=== PATIENT | female | born 1965 | race Caucasian/White ===

== ENCOUNTER → 2018-03-21 | Outpatient (REF) | payer OTHER ==
[2018-03-21 17:44] LABS: TOTAL PROTEIN,RANDOM URINE 17.6 MG/DL (0.0-12.0)
[2018-03-21 20:56] LABS: APPEARANCE, URINE HAZY (CLEAR); BACTERIA, URINE AUTO 1+ (NEGATIVE); BILIRUBIN, URINE AUTO NEGATIVE (NEGATIVE); BLOOD, URINE BLOOD NEGATIVE (NEGATIVE); COLOR, URINE YELLOW (YELLOW); GLUCOSE, URINE (UA) AUTO NEGATIVE (NEGATIVE); KETONE, URINE AUTO TRACE mg/dL (NEGATIVE); LEUKOCYTE ESTERASE, URINE AUTO NEGATIVE (NEGATIVE); MUCUS, URINE SMALL (NEGATIVE); NITRITE, URINE AUTO NEGATIVE (NEGATIVE); PROTEIN, URINE AUTO NEGATIVE (NEGATIVE); RBC, URINE AUTO 2 /HPF (0-3); SPECIFIC GRAVITY URINE AUTO 1.027 (1.002-1.035); SQUAMOUS EPITHELIAL CELL UR AU 3 /HPF (0-6); UROBILINOGEN, URINE AUTO 0.2 mg/dL (0.0-2.0); WBC, URINE AUTO 0 /HPF (0-3)
== END ==
LOC: M LAB REF 16:15
DX: M12.9 Arthropathy, unspecified (principal); R79.89 Other specified abnormal findings of blood chemistry

== ENCOUNTER → 2020-04-05 | Outpatient (CLI) | payer OTHER ==
[2020-04-05 11:39] LABS: BLOOD UREA NITROGEN 12 MG/DL (7-18); CALCIUM LEVEL 8.8 MG/DL (8.5-10.1); CARBON DIOXIDE LEVEL 29 MEQ/L (21-32); CHLORIDE LEVEL 104 MEQ/L (98-107); CREATININE FOR GFR 0.66 MG/DL (0.55-1.30); GLOMERULAR FILTRATION RATE > 60.0 (>51); GLUCOSE, FASTING 180 MG/DL (70-100); POTASSIUM SERUM 4.3 MEQ/L (3.5-5.1); SODIUM LEVEL 138 MEQ/L (136-145)
--- NOTE | 2020-04-06 06:21 | ECGEPIP ---
[facility] Test Date: 2020-04-05 Pat Name: CATHERINE CORCORAN Department: Room: - Gender: Female Vice President Financial: SIDNEY : 1965 Requested By: Lc Adair Order Number: [id number] Reading MD: Igor Smith Measurements Intervals [place] Rate: 75 P: 48 [place]: 165 QRS: -1 QRSD: 82 T: 73 QT: 367 QTc: 411 Interpretive Statements Normal sinus rhythm Minor nonspecific T wave abnormality Comparison tracing not on file Electronically Signed on 04-06-2020 6:21:11 EDT by Igor Smith
== END ==
LOC: M LAB 10:06
PROVIDERS: ATTEND Orthopaedic Surgery
DX: I10 Essential (primary) hypertension (principal); Z79.899 Other long term (current) drug therapy; R94.31 Abnormal electrocardiogram [ECG] [EKG]

== ENCOUNTER → 2020-04-08 | Outpatient (CLI) | payer OTHER | LOC: M LABSMTC 11:58 | PROVIDERS: ATTEND Orthopaedic Surgery | DX: Z01.812 Encounter for preprocedural laboratory examination (principal); Z20.828 Contact with and (suspected) exposure to other viral communicable diseases ==

== ENCOUNTER 2021-03-22 00:53 | Emergency (ER) | payer OTHER ==
[~2021-03-22] VITALS: Ht 157.5 cm; Wt 99.1 kg
[2021-03-22] MEDS ORDERED: METF-838 PO (01:03)
[2021-03-22] MEDS ORDERED: LISI20TA35 PO (01:03)
[2021-03-22] MEDS ORDERED: AMLO1TAB24 PO (01:03)
[2021-03-22] MEDS ORDERED: TRUL10IN SUBQ (01:03)
--- NOTE | 2021-03-22 01:43 | REPVR ---
PROCEDURE INFORMATION: Exam: XR Right Foot Exam date and time: 03/22/2021 1:24 AM Age: 55 years old Clinical indication: Pain; Right; Patient HX: Dropped metal lid on foot; Additional info: Injury pain TECHNIQUE: Imaging protocol: XR Right foot. Views: 3 or more views. COMPARISON: No relevant prior studies available. FINDINGS: Bones/joints: There is no fracture or dislocation of the right foot. 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 The alignment is maintained. Incidental note is made of 2 well corticated ossicles lateral to the cuboid, which may represent os peronei. Soft tissues: There is a plantar calcaneal spur at the origin of the right plantar fascia. There is a posterior calcaneal spur at the insertion of the Achilles tendon, which is compatible with a right Achilles enthesopathy. IMPRESSION: No fracture or dislocation of the right foot. Electronically signed by: Hugo Delvalle On 03/22/2021 01:43:34 AM
[2021-03-22] MEDS ORDERED: KETOROLAC TROMETHAMINE 10 MG TAB PO ONE (02:00)
[2021-03-22] MEDS ORDERED: amLODIPine 5 MG TAB PO ONE (02:15)
[2021-03-22 02:21] VITALS: BP 235/95
== END 2021-03-22 02:24 | disposition home or self-care (01) ==
LOC: M ED 00:53
DX: S90.31XA Contusion of right foot, initial encounter (principal); W22.8XXA Striking against or struck by other objects, initial encounter; Y92.018 Other place in single-family (private) house as the place of occurrence of the external cause; I10 Essential (primary) hypertension; E11.9 Type 2 diabetes mellitus without complications; Z79.899 Other long term (current) drug therapy; Z79.84 Long term (current) use of oral hypoglycemic drugs

== ENCOUNTER → 2022-09-04 | Outpatient (CLI) | payer OTHER ==
[~2022-09-04] MED LIST: AMLO1TAB24 PO; LISI20TA35 PO; METF-838 PO; TRUL10IN SUBQ
== END ==
LOC: M WHC 07:12
PROVIDERS: ATTEND Physician Assistant
DX: Z12.31 Encounter for screening mammogram for malignant neoplasm of breast (principal)

== ENCOUNTER 2023-07-22 14:41 | Emergency (ER) | payer OTHER ==
[~2023-07-22] VITALS: Ht 132.1 cm; Wt 82.5 kg
[2023-07-22] MEDS ORDERED: NAPROXEN 250 MG TAB PO ONE (15:35)
[2023-07-22] MEDS ORDERED: METH-1164 PO (17:09)
[2023-07-22] MEDS ORDERED: IBUP-1022 PO (17:09)
[2023-07-22 17:22] VITALS: BP 168/80; TEMP 97.5; O2SAT 97
[2023-07-22] MEDS ORDERED: methocarbamoL 500 MG TAB PO ONE (17:25)
== END 2023-07-22 17:28 | disposition home or self-care (01) ==
LOC: M ED 14:41
DX: M54.2 Cervicalgia (principal); M43.22 Fusion of spine, cervical region; E11.9 Type 2 diabetes mellitus without complications; I10 Essential (primary) hypertension; Z79.899 Other long term (current) drug therapy